=== PATIENT | female | born 1960 | race Caucasian/White ===

== ENCOUNTER → 2019-02-05 | Outpatient (CLI) | payer OTHER ==
--- NOTE | 2019-02-05 15:38 | XR ---
EXAMINATION TYPE: XR lumbosacral spine min 4V DATE OF EXAM: 02/05/2019 COMPARISON: None HISTORY: Groin strain right TECHNIQUE: 5 view lumbar spine FINDINGS: Vascular calcifications within the aorta. The distal abdominal aorta has some fusiform prom inence with an AP dimension of 3.4 cm. Monitoring is recommended. There are 5 lumbar-type vertebral bodies. The pedicles are intact. There is loss of disc height L5-S1 . Remaining disc heights are preserved. Vertebral body heights are preserved. Facets appear normal. IMPRESSION: 1. Degenerative disc changes L5-S1. 2. Fusiform prominence distal abdominal aorta with an AP dimension of 3.4 cm. Monitoring is recommend ed.
== END | disposition home or self-care (01) ==
LOC: RADXRYALE 15:15
PROVIDERS: ATTEND Internal Medicine
DX: M51.37 Other intervertebral disc degeneration, lumbosacral region (principal)
CPT/HCPCS: 72110